=== PATIENT | male | born 1965 | race African-American/Black ===

== ENCOUNTER 2019-12-06 00:01 | Emergency (ER) | payer OTHER ==
[2019-12-06 00:26] VITALS: BP 147/84; PULSE 77; TEMP 98.9; BMI 26.4
[2019-12-06] MEDS ORDERED: ERYTHROMYCIN 0.5% OPHTHALMIC OINTMENT 3.5 GM TUBE OD ONE (00:49)
[2019-12-06] MEDS ORDERED: TETRACAINE 0.5% HCL 0.6ML DROPPER.BOTTLE OD ONE (00:49)
[2019-12-06] MEDS ORDERED: FLUORESCEIN NA 1 EA STRIP OD ONE (00:49)
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
[2019-12-06] MEDS ORDERED: ERYTHROMYCIN 0.5% OPHTHALMIC OINTMENT 3.5 GM TUBE ONE (01:48)
== END 2019-12-06 02:21 | disposition home or self-care (01) ==
LOC: JER 00:01
DX: H57.11 Ocular pain, right eye (principal)
CPT/HCPCS: 99283-25